=== PATIENT | female | born 1985 | race Caucasian/White ===

== ENCOUNTER 2017-05-26 23:08 | Emergency (ER) | payer OTHER, SELFPAY ==
[2017-05-26] MEDS ORDERED: Ibuprofen 600 MG TAB ONE (23:38)
[2017-05-27] MEDS ORDERED: Bacitracin Zinc 1 Packet ONE (00:06)
--- NOTE | 2017-05-27 00:09 | RAD ---
RADIOGRAPH RIGHT ANKLE 3 VIEWS: 05/26/17 HISTORY: 31-year-old female with acute traumatic injury to the right ankle. FINDINGS: Lateral and anterior soft tissue swelling. Ankle mortise is symmetrical. Talar dome is maintained. N o fracture or dislocation. IMPRESSION: 1. No fracture. 2. Acute, traumatic, mild soft tissue edema of the ankle. POS: [facility]
== END 2017-05-27 00:15 | disposition home or self-care (01) ==
LOC: SCSER 23:08
DX: S93.401A Sprain of unspecified ligament of right ankle, initial encounter (principal); J45.909 Unspecified asthma, uncomplicated; F17.210 Nicotine dependence, cigarettes, uncomplicated; W18.30XA Fall on same level, unspecified, initial encounter; Y93.01 Activity, walking, marching and hiking; Y92.828 Other wilderness area as the place of occurrence of the external cause

== ENCOUNTER 2019-12-19 23:13 | Emergency (ER) | payer OTHER | END 2019-12-19 23:45 | disposition left against medical advice (07) | LOC: ERS 23:13 | DX: Z53.21 Procedure and treatment not carried out due to patient leaving prior to being seen by health care provider (principal) ==

== ENCOUNTER 2020-11-16 12:37 | Outpatient (CLI) | payer OTHER ==
[2020-11-17 05:52] LABS: SARS-CoV-2 PCR by NAA Not Detected (NotDetected)
== END 2020-11-16 12:38 | disposition home or self-care (01) ==
LOC: LABBT 12:37
PROVIDERS: ATTEND Neurological Surgery
DX: Z01.818 Encounter for other preprocedural examination (principal); M54.12 Radiculopathy, cervical region; Z20.822 Contact with and (suspected) exposure to COVID-19
CPT/HCPCS: 87635; 93005; 93010; U0003; U0005

== ENCOUNTER 2020-11-18 06:13 | Day surgery (SDC) | payer OTHER ==
[2020-11-17 11:42] VITALS: BMI 24.3
[2020-11-18] MEDS ORDERED: Fentanyl 100 MCG/2 ML VIAL ONE ×4 (07:15→10:21)
[2020-11-18] MEDS ORDERED: Famotidine/PF 20 mg/2ml Vial ONE (07:16)
[2020-11-18] MEDS ORDERED: Midazolam HCl 2 mg/2 ml Vial ONE (07:17)
[2020-11-18] MEDS ORDERED: Ketorolac Tromethamine 30 MG/ML VIAL ONE (07:56)
[2020-11-18] MEDS ORDERED: Dexamethasone 20 MG/5 ML VIAL ONE (07:56)
[2020-11-18] MEDS ORDERED: ePHEDrine 50 MG/ML VIAL ONE (07:56)
[2020-11-18] MEDS ORDERED: Ondansetron PF 4 MG/2 ML Vial ONE (07:56)
[2020-11-18] MEDS ORDERED: Metoclopramide HCl 10 MG/2 ML VIAL ONE (07:56)
[2020-11-18] MEDS ORDERED: Lidocaine 1% PF 5 ML VIAL ONE (07:56)
[2020-11-18] MEDS ORDERED: PROPOFOL 200 MG/20 ML VIAL ONE (07:56)
[2020-11-18] MEDS ORDERED: Rocuronium Bromide 10 MG/ML (10ML VIAL) ONE (07:56)
[2020-11-18] MEDS ORDERED: Meperidine HCl/PF 25 MG/ML VIAL ONE (08:46)
[2020-11-18] MEDS ORDERED: SUGAMMADEX SODIUM 200 MG/2 ML VIAL ONE (08:51)
[2020-11-18] MEDS ORDERED: HYDROcodone/Acetaminophen 5/325 mg Tablet ONE (12:40)
== END 2020-11-18 12:50 | disposition home or self-care (01) ==
LOC: SDC 06:13
PROVIDERS: ATTEND Neurological Surgery
PROC: 0RG1070 Fusion of Cervical Vertebral Joint with Autologous Tissue Substitute, Anterior Approach, Anterior Column, Open Approach (ICD-10-PCS; principal; 2020-11-18)
PROC: 0RT30ZZ Resection of Cervical Vertebral Disc, Open Approach (ICD-10-PCS; principal; 2020-11-18)
DX: M54.12 Radiculopathy, cervical region (principal); Z79.899 Other long term (current) drug therapy
CPT/HCPCS: 76000; C1713; C1776; J0690; J1100; J1885; J2175; J2250; J2405; J2704; J2765; J3010; J3490; S0028

== ENCOUNTER 2022-03-31 11:11 | Outpatient (CLI) | payer OTHER | END 2022-03-31 11:12 | disposition home or self-care (01) | LOC: TBSIIMAG 11:11 | PROVIDERS: ATTEND Neurological Surgery | DX: M54.2 Cervicalgia (principal); M43.22 Fusion of spine, cervical region | CPT/HCPCS: 72050 ==

== ENCOUNTER 2022-04-14 08:34 | Outpatient (CLI) | payer BC ==
[2022-04-14] MEDS ORDERED: Magnevist 469MG/ML 20 ML VIAL ONE (15:00)
== END 2022-04-14 08:35 | disposition home or self-care (01) ==
LOC: TBSIIMAG 08:34
PROVIDERS: ATTEND Neurological Surgery
DX: M54.2 Cervicalgia (principal); G44.221 Chronic tension-type headache, intractable; M47.812 Spondylosis without myelopathy or radiculopathy, cervical region; M50.321 Other cervical disc degeneration at C4-C5 level; M48.02 Spinal stenosis, cervical region; M50.221 Other cervical disc displacement at C4-C5 level; M25.78 Osteophyte, vertebrae; Z98.1 Arthrodesis status
CPT/HCPCS: 72156

== ENCOUNTER 2022-05-20 10:23 | Outpatient (CLI) | payer BC | END 2022-05-20 10:24 | disposition home or self-care (01) | LOC: LABBT 10:23 | PROVIDERS: ATTEND Neurological Surgery | DX: Z01.810 Encounter for preprocedural cardiovascular examination (principal); Z20.822 Contact with and (suspected) exposure to COVID-19 | CPT/HCPCS: 87811; 93005; 93010 ==

== ENCOUNTER 2022-05-20 10:30 | Inpatient (IN) | payer BC ==
[2022-05-24 14:03] VITALS: BMI 27.4
[2022-05-25] MEDS ORDERED: Thrombin 5000 UNITS/5 ML VIAL ONE (06:11)
[2022-05-25] MEDS ORDERED: Famotidine/PF 20 mg/2ml Vial ONE (06:27)
[2022-05-25] MEDS ORDERED: Scopolamine 1.5 mg/72 hour Patch ONE (06:27)
[2022-05-25] MEDS ORDERED: PROPOFOL 200 MG/20 ML VIAL ONE (06:30)
[2022-05-25] MEDS ORDERED: Dexamethasone 20 MG/5 ML VIAL ONE (06:30)
[2022-05-25] MEDS ORDERED: Ondansetron PF 4 MG/2 ML Vial ONE (06:30)
[2022-05-25] MEDS ORDERED: Rocuronium Bromide 10 MG/ML (10ML VIAL) ONE (06:30)
[2022-05-25] MEDS ORDERED: fentaNYL Citrate/PF 100 MCG/2 ML SYRINGE ONE (06:34)
[2022-05-25] MEDS ORDERED: Dexmedetomidine 200 MCG/2 ML VIAL ONE (06:35)
[2022-05-25] MEDS ORDERED: Sodium Chloride 0.9% 100 ML ONE ×2 (06:43→10:54)
[2022-05-25] MEDS ORDERED: CEFAZOLIN 2 GM VIAL ONE ×2 (06:43→10:54)
[2022-05-25] MEDS ORDERED: Midazolam HCl 2 mg/2 ml Vial ONE (06:43)
[2022-05-25] MEDS ORDERED: SUGAMMADEX SODIUM 200 MG/2 ML VIAL ONE (08:06)
[2022-05-25] MEDS ORDERED: Fentanyl 100 MCG/2 ML VIAL ONE ×2 (08:45→09:06)
[2022-05-25] MEDS ORDERED: Acetaminophen/Codeine 30-300mg Tablet ONE (09:56)
[2022-05-25] MEDS ORDERED: HYDROcodone/Acetaminophen 5/325 mg Tablet ONE (10:01)
[2022-05-25] MEDS ORDERED: Promethazine HCl 25 MG/ML VIAL ONE (10:07)
== END 2022-05-25 11:54 | disposition home or self-care (01) | DRG 30 ==
LOC: SURG A 05-25 05:47
PROVIDERS: ADMIT Neurological Surgery; ATTEND Neurological Surgery
PROC: 0RG10A0 Fusion of Cervical Vertebral Joint with Interbody Fusion Device, Anterior Approach, Anterior Column, Open Approach (ICD-10-PCS; principal; 2022-05-25)
PROC: 0RT30ZZ Resection of Cervical Vertebral Disc, Open Approach (ICD-10-PCS; 2022-05-25)
PROC: 00NW0ZZ Release Cervical Spinal Cord, Open Approach (ICD-10-PCS; 2022-05-25)
PROC: 0RP104Z Removal of Internal Fixation Device from Cervical Vertebral Joint, Open Approach (ICD-10-PCS; 2022-05-25)
DX: M54.12 Radiculopathy, cervical region (principal); F41.9 Anxiety disorder, unspecified; I10 Essential (primary) hypertension; G89.29 Other chronic pain; Z20.822 Contact with and (suspected) exposure to COVID-19; Z82.49 Family history of ischemic heart disease and other diseases of the circulatory system; Z80.9 Family history of malignant neoplasm, unspecified; Z83.3 Family history of diabetes mellitus; Z79.899 Other long term (current) drug therapy
CPT/HCPCS: 76000; C1713; J0690; J1100; J2250; J2405; J2550; J2704; J3010; J3490; S0028

== ENCOUNTER 2022-08-30 10:50 | Outpatient (CLI) | payer BC | END 2022-08-30 10:51 | disposition home or self-care (01) | LOC: TBSIIMAG 10:50 | PROVIDERS: ATTEND Neurological Surgery | DX: M50.121 Cervical disc disorder at C4-C5 level with radiculopathy (principal); Z98.890 Other specified postprocedural states | CPT/HCPCS: 72040 ==

== ENCOUNTER 2022-10-13 13:18 | Outpatient (CLI) | payer BC | END 2022-10-13 13:19 | disposition home or self-care (01) | LOC: BICCT 13:18 | PROVIDERS: ATTEND Neurological Surgery | DX: M54.2 Cervicalgia (principal); M47.812 Spondylosis without myelopathy or radiculopathy, cervical region; M25.78 Osteophyte, vertebrae; M47.813 Spondylosis without myelopathy or radiculopathy, cervicothoracic region; Z98.890 Other specified postprocedural states | CPT/HCPCS: 72125 ==

== ENCOUNTER 2022-10-21 06:29 | Day surgery (SDC) | payer BC ==
[2022-10-20 10:40] VITALS: BMI 23.9
[2022-10-21 08:19] LABS: Anion Gap 13 mmol/L (10-20); BUN (Urea Nitrogen) 10 mg/dL (7.0-18.7); Calc. Creatinine Clearance 95 mL/min (70-130); Carbon Dioxide 29 mmol/L (22-29); Chloride 101 mmol/L (98-107); Estimated GFR 84; Glucose 77 mg/dL (70-105); Potassium 4.2 mmol/L (3.5-5.1); Sodium 139 mmol/L (136-145)
[2022-10-21] MEDS ORDERED: Midazolam HCl 2 mg/2 ml Vial ONE (08:53)
[2022-10-21] MEDS ORDERED: NEOSTIGMINE 3 MG/3 ML SYR 3 MG/3 ML SYRINGE ONE (09:05)
[2022-10-21] MEDS ORDERED: ePHEDrine 50 MG/ML VIAL ONE (09:05)
[2022-10-21] MEDS ORDERED: Rocuronium Bromide 10 MG/ML (10ML VIAL) ONE (09:05)
[2022-10-21] MEDS ORDERED: Glycopyrrolate 0.2 MG/ML 5 ML SYRINGE ONE (09:05)
[2022-10-21] MEDS ORDERED: diphenhydrAMINE 50 MG/ML VIAL ONE (09:05)
[2022-10-21] MEDS ORDERED: Lidocaine 1% PF 5 ML VIAL ONE (09:05)
[2022-10-21] MEDS ORDERED: Dexamethasone 20 MG/5 ML VIAL ONE (09:05)
[2022-10-21] MEDS ORDERED: Metoclopramide HCl 10 MG/2 ML VIAL ONE (09:05)
[2022-10-21] MEDS ORDERED: Ondansetron PF 4 MG/2 ML Vial ONE (09:05)
[2022-10-21] MEDS ORDERED: PHENYLEPHRINE-NS 100 MCG/ML 10 ML SYRINGE ONE (09:05)
[2022-10-21] MEDS ORDERED: PROPOFOL 200 MG/20 ML VIAL ONE (09:05)
[2022-10-21] MEDS ORDERED: Thrombin 5000 UNITS/5 ML VIAL ONE (09:06)
[2022-10-21] MEDS ORDERED: fentaNYL PF 100 MCG/2 ML SYRINGE ONE ×2 (09:11→11:26)
[2022-10-21] MEDS ORDERED: CEFAZOLIN 2 GM VIAL ONE ×2 (09:14→13:25)
[2022-10-21] MEDS ORDERED: Sodium Chloride 0.9% 100 ML ONE ×2 (09:14→13:25)
[2022-10-21] MEDS ORDERED: HYDROmorphone 2 MG/ML VIAL ONE (10:01)
[2022-10-21] MEDS ORDERED: HYDROcodone/Acetaminophen 5/325 mg Tablet ONE (12:30)
== END 2022-10-21 14:09 | disposition home or self-care (01) ==
LOC: SDC 06:29
PROVIDERS: ATTEND Neurological Surgery
PROC: 0RG10A0 Fusion of Cervical Vertebral Joint with Interbody Fusion Device, Anterior Approach, Anterior Column, Open Approach (ICD-10-PCS; principal; 2022-10-21)
PROC: 0RJ10ZZ Inspection of Cervical Vertebral Joint, Open Approach (ICD-10-PCS; principal; 2022-10-21)
DX: T84.226A Displacement of internal fixation device of vertebrae, initial encounter (principal); M54.12 Radiculopathy, cervical region; J30.2 Other seasonal allergic rhinitis; G89.29 Other chronic pain; I10 Essential (primary) hypertension; Z87.891 Personal history of nicotine dependence; Z79.899 Other long term (current) drug therapy; Z88.5 Allergy status to narcotic agent; Y75.3 Surgical instruments, materials and neurological devices (including sutures) associated with adverse incidents
CPT/HCPCS: 80048; C1713; C1889; J1100; J1170; J1200; J2250; J2405; J2704; J2765; J3490

== ENCOUNTER 2023-06-02 13:15 | Outpatient (CLI) | payer BC | END 2023-06-02 13:16 | disposition home or self-care (01) | LOC: RAD 13:15 | PROVIDERS: ATTEND Physician Assistant | DX: M54.12 Radiculopathy, cervical region (principal); Z98.1 Arthrodesis status | CPT/HCPCS: 72050 ==